=== PATIENT | female | born 1935 | race Caucasian/White ===

== ENCOUNTER 2017-01-13 08:00 | Outpatient (RCR) | payer MEDICARE, OTHER ==
[~2017-01-13 08:00] MED LIST: ALTACE5 MG PO; ASPIRIN 81M81 MG/TA2 PO; CARVEDILOL; CIPRO 250MG TA250 MG PO; FLEXERIL 1010 MG/TAB PO; LAMICTAL150 MG PO; LEVOTHYROXINE PO; LIPITOR 10MG10 MG PO; MOTRIN 800800 MG/TAB PO; PERCOCET 325 MG1 TA2 PO; PERCOCET 5/321 UDTAB PO; TYLENOL 500MG500 MG PO; VITAMIN B-1000 MCG/T PO; [UNRECOGNIZED DRUG - OTHER]; muscle relaxant
== END 2017-01-15 16:44 ==
LOC: WSPT 08:00
DX: R26.89 Other abnormalities of gait and mobility (principal); H81.12 Benign paroxysmal vertigo, left ear; R29.898 Other symptoms and signs involving the musculoskeletal system
CPT/HCPCS: G8982-GP

== ENCOUNTER → 2017-06-17 | Outpatient (CLI) | payer MEDICARE, OTHER | LOC: MC.RAD 11:09 | DX: N60.01 Solitary cyst of right breast (principal); N64.89 Other specified disorders of breast ==

== ENCOUNTER → 2017-06-30 | Outpatient (CLI) | payer MEDICARE, OTHER | LOC: MC.RAD 08:26 | DX: R92.8 Other abnormal and inconclusive findings on diagnostic imaging of breast (principal) ==

== ENCOUNTER 2018-10-01 01:41 | Inpatient (IN) | payer MEDICARE, OTHER ==
[~2018-10-01] VITALS: Ht 165.1 cm; Wt 55.0 kg
[2018-10-01] VITALS (489 sets, daily range): BP systolic 103–126; BP diastolic 48–60; PULSE 50–57; TEMP 97.5–98; O2SAT 77–100
[2018-10-01 02:15] LABS: BASO % 0.3 % (0.0-2.0); EOS # 0.1 (0.0-0.7); GRAN # 5.1 (1.4-6.5); GRAN % 78.5 % (42.2-75.2); HEMOGLOBIN 10.6 g/dl (12.5-16.0); LYMPH # 0.7 (1.2-3.4); LYMPH % 10.9 % (20.0-51.0); MEAN CELL VOLUME 89 fl (80.0-100.0); MEAN CORPUSCULAR HEMOGLOBIN 31 pg (27.0-31.0); MEAN CORPUSCULAR HGB CONC 35 g/dl (33.0-37.0); MEAN PLATELET VOLUME 10.2 fl (7.4-10.4); MONO # 0.5 (0.1-0.6); MONO % 7.8 % (1.7-9.3); PLATELET COUNT 148 K/mm3 (130-400); RED BLOOD COUNT 3.44 M/mm3 (4.10-5.30); REDCELL DISTRIBUTION WIDTH-CV 14.7 % (11.5-14.5)
[2018-10-01 02:22] LABS: HEMATOCRIT 30.5 % (37.0-47.0)
[2018-10-01 02:24] LABS: ALBUMIN 3.8 gm/dL (3.5-5.0); BILIRUBIN,TOTAL 0.5 mg/dL (0.0-1.0); CALCIUM 9.2 mg/dL (8.4-10.2); CREATININE, serum 0.74 (0.52-1.25); TOTAL PROTEIN 6.2 gm/dL (6.4-8.2)
[2018-10-01 02:26] LABS: INR 1.1 (0.8-3.0); PROTHROMBIN TIME 13.3 SECONDS (9.7-12.8)
[2018-10-01 02:29] LABS: POTASSIUM 2.4 mmol/L (3.4-5.0)
[2018-10-01 02:35] LABS: TROPONIN-I 0.016 ng/mL (0.000-0.035)
[2018-10-01 04:06] LABS: COLLECTION METHOD CATHETER
[2018-10-01 04:47] LABS: MUCOUS Present /lpf; PH 6 (5-8); SQUAMOUS EPITHELIAL None Seen /hpf; URINE APPEARANCE Clear; URINE BACTERIA None Seen /hpf; URINE BILIRUBIN Negative (NEGATIVE); URINE BLOOD Negative (NEGATIVE); URINE COLOR Yellow; URINE GLUCOSE Negative (NEGATIVE); URINE KETONE Trace (NEGATIVE); URINE LEUKOCYTE ESTERASE Negative (NEGATIVE); URINE NITRATE Negative (NEGATIVE); URINE PROTEIN(semi-quant) Negative (NEGATIVE); URINE RBC 0-2 /hpf; URINE UROBILINOGEN Negative (NEGATIVE)
[2018-10-01] MEDS ORDERED: ELIQUIS 2.5 PO (06:07)
[2018-10-01] MEDS ORDERED: LIPITOR 10MG10 MG PO (06:08)
[2018-10-01] MEDS ORDERED: COREG12.5 MG PO (06:09)
[2018-10-01] MEDS ORDERED: ZYRTEC 10MG10 MG PO (06:09)
[2018-10-01] MEDS ORDERED: LANOXIN 0.120.125 MG PO (06:09)
[2018-10-01] MEDS ORDERED: CYMBALTA 60MG60 MG PO (06:10)
[2018-10-01] MEDS ORDERED: NEURONTIN300 MG/CAP PO (06:10)
[2018-10-01] MEDS ORDERED: SYNTHROID0.05 MG/TA PO (06:11)
[2018-10-01] MEDS ORDERED: B-121000 MCG PO (06:11)
[2018-10-01 06:25] LABS: DIGOXIN 0.6 ng/mL (0.8-2.0)
[2018-10-01 06:35] LABS: THYROID STIMULATING HORMONE 0.52 uIU/mL (0.465-4.680)
--- NOTE | 2018-10-01 09:08 | NUR ---
Admission assessment complete at this time. Plan of care reviewed at bedside with patient. Additional time taken to address any other needs or concerns. Vitals stable. Denies pain or any other discomfort. Will continue to monitor. Bed in low position and call light within reach.
--- NOTE | 2018-10-01 10:18 | NUR ---
Patient was indisposed at the time of my visit. She was being seen by a doctor.
--- NOTE | 2018-10-01 11:27 | NUR ---
Patient was indisposed with a nurse.
--- NOTE | 2018-10-01 12:00 | NUR ---
Pt resting comfortably in bed. Denies pain or any other discomfort. Vitals stable at this time. Bed in low position, call light within reach. Will continue to monitor.
--- NOTE | 2018-10-01 16:00 | NUR ---
Pt resting comfortably in bed. Denies pain or any other discomfort. Vitals stable at this time. Amiodarone gtt continues as ordered. Bed in low position, call light within reach, at bedside. Will continue to monitor.
[2018-10-01] MEDS ORDERED: PACERONE200 MG PO (16:18)
--- NOTE | 2018-10-01 19:10 | NUR ---
Bedside report given to REBECCA Herrera.
--- NOTE | 2018-10-01 19:40 | NUR ---
Patient assessment completed and charted at this time, please see documentation for details. Patient resting in bed, son and at bedside. All questions and concerns addressed with patient and family, will continue to monitor.
[2018-10-02] VITALS (503 sets, daily range): BP systolic 135–155; BP diastolic 70–94; PULSE 57–64; TEMP 97.5–98.1; O2SAT 74–100
[2018-10-02 04:53] LABS: BASO % 0.2 % (0.0-2.0); EOS # 0.1 (0.0-0.7); EOS % 2.2 % (0-4.0); GRAN # 3.7 (1.4-6.5); GRAN % 69.3 % (42.2-75.2); LYMPH # 0.9 (1.2-3.4); LYMPH % 16.9 % (20.0-51.0); MEAN CELL VOLUME 91 fl (80.0-100.0); MEAN CORPUSCULAR HGB CONC 34 g/dl (33.0-37.0); MEAN PLATELET VOLUME 10.7 fl (7.4-10.4); MONO # 0.6 (0.1-0.6); PLATELET COUNT 113 K/mm3 (130-400); RED BLOOD COUNT 3.19 M/mm3 (4.10-5.30); REDCELL DISTRIBUTION WIDTH-CV 15.3 % (11.5-14.5)
[2018-10-02 04:56] LABS: HEMOGLOBIN 9.8 g/dl (12.5-16.0); MEAN CORPUSCULAR HEMOGLOBIN 31 pg (27.0-31.0)
[2018-10-02 05:11] LABS: CREATININE, serum 0.55 (0.52-1.25); MAGNESIUM 2.1 mg/dL (1.6-2.3); POTASSIUM 3.7 mmol/L (3.4-5.0)
--- NOTE | 2018-10-02 08:00 | NUR ---
Shift assessment complete at this time. Plan of care reviewed at bedside with patient. Additional time taken to address any other needs or concerns. Vitals stable at this time. Denies pain or any other discomfort. Bed in low position, call light within reach. Will continue to monitor.
[2018-10-02] MEDS ORDERED: CORDARONE200 MG/TAB PO (10:08)
[2018-10-02] MEDS ORDERED: IMODIUM 2MG CAPS2 MG PO (10:09)
[2018-10-02] MEDS ORDERED: LASIX 20MG TABL20 MG PO (10:09)
[2018-10-02] MEDS ORDERED: KLOR-CON M2020 MEQ PO (10:10)
--- NOTE | 2018-10-02 11:20 | NUR ---
Pt discharged by wheelchair to private car of family. Pt tolerated wheelchair transfer well.
== END 2018-10-02 11:20 | disposition home or self-care (01) | DRG 309 ==
LOC: COL.ER 01:41 → ICU 04:20
PROVIDERS: Emergency Medicine; Nurse Practitioner Family; ADMIT Hospitalist
PROC: 4B02XTZ Measurement of Cardiac Defibrillator, External Approach (ICD-10-PCS; principal; 2018-10-01)
DX: I47.2 Ventricular tachycardia (principal); I50.20 Unspecified systolic (congestive) heart failure; T50.1X5A Adverse effect of loop [high-ceiling] diuretics, initial encounter; E87.6 Hypokalemia; K52.9 Noninfective gastroenteritis and colitis, unspecified; E78.5 Hyperlipidemia, unspecified; Z95.0 Presence of cardiac pacemaker; Z79.01 Long term (current) use of anticoagulants; E03.9 Hypothyroidism, unspecified; Z79.52 Long term (current) use of systemic steroids; Z87.891 Personal history of nicotine dependence; Z88.8 Allergy status to other drugs, medicaments and biological substances; Y92.009 Unspecified place in unspecified non-institutional (private) residence as the place of occurrence of the external cause; E83.42 Hypomagnesemia; I11.0 Hypertensive heart disease with heart failure; G62.9 Polyneuropathy, unspecified; D64.9 Anemia, unspecified; I25.10 Atherosclerotic heart disease of native coronary artery without angina pectoris
CPT/HCPCS: 99222-AI; 99232-AI; 99239; J0282; J2405; J3475; J3480; J7030; J7060

== ENCOUNTER 2018-10-21 20:29 | Emergency (ER) | payer MEDICARE, OTHER ==
[~2018-10-21] VITALS: Ht 165.1 cm; Wt 47.7 kg
[~2018-10-21 20:29] MED LIST changes: +B-121000 MCG PO; +CORDARONE200 MG/TAB PO; +COREG12.5 MG PO; +CYMBALTA 60MG60 MG PO; +ELIQUIS 2.5 PO; +IMODIUM 2MG CAPS2 MG PO; +KLOR-CON M2020 MEQ PO; +LANOXIN 0.120.125 MG PO; +LASIX 20MG TABL20 MG PO; +NEURONTIN300 MG/CAP PO; +PACERONE200 MG PO; +SYNTHROID0.05 MG/TA PO; +ZYRTEC 10MG10 MG PO
[2018-10-21 20:33] VITALS: TEMP 98.3
[2018-10-21 21:10] LABS: ALBUMIN 3.9 gm/dL (3.5-5.0); BILIRUBIN,TOTAL 0.5 mg/dL (0.0-1.0); CALCIUM 9.2 mg/dL (8.4-10.2); CREATININE, serum 1.16 (0.52-1.25); POTASSIUM 3.6 mmol/L (3.4-5.0); TOTAL PROTEIN 6.9 gm/dL (6.4-8.2)
[2018-10-21 21:13] LABS: BASO % 0.4 % (0.0-2.0); EOS # 0.3 (0.0-0.7); EOS % 4.3 % (0-4.0); GRAN # 5.4 (1.4-6.5); GRAN % 75.1 % (42.2-75.2); HEMATOCRIT 32.1 % (37.0-47.0); HEMOGLOBIN 10.7 g/dl (12.5-16.0); LYMPH # 0.8 (1.2-3.4); LYMPH % 10.8 % (20.0-51.0); MEAN CELL VOLUME 92 fl (80.0-100.0); MEAN CORPUSCULAR HEMOGLOBIN 31 pg (27.0-31.0); MEAN CORPUSCULAR HGB CONC 33 g/dl (33.0-37.0); MONO # 0.6 (0.1-0.6); PLATELET COUNT 247 K/mm3 (130-400); RED BLOOD COUNT 3.49 M/mm3 (4.10-5.30); REDCELL DISTRIBUTION WIDTH-CV 14.6 % (11.5-14.5)
[2018-10-21 21:22] LABS: TROPONIN-I 0.014 ng/mL (0.000-0.035)
[2018-10-21 22:07] LABS: THYROID STIMULATING HORMONE 2.28 uIU/mL (0.465-4.680)
[2018-10-21 23:39] LABS: COLLECTION METHOD CLEAN CATCH
[2018-10-21 23:45] LABS: PH 6 (5-8); SQUAMOUS EPITHELIAL None Seen /hpf; URINE APPEARANCE Clear; URINE BACTERIA None Seen /hpf; URINE BILIRUBIN Negative (NEGATIVE); URINE BLOOD Negative (NEGATIVE); URINE COLOR Straw; URINE GLUCOSE Negative (NEGATIVE); URINE KETONE Negative (NEGATIVE); URINE LEUKOCYTE ESTERASE Negative (NEGATIVE); URINE NITRATE Negative (NEGATIVE); URINE PROTEIN(semi-quant) Negative (NEGATIVE); URINE RBC 0-2 /hpf; URINE UROBILINOGEN Negative (NEGATIVE)
[2018-10-21 23:59] VITALS: BP 136/61; PULSE 62
== END 2018-10-21 23:59 | disposition home or self-care (01) ==
LOC: COL.ER 20:29
PROVIDERS: Emergency Medicine
DX: R55 Syncope and collapse (principal); I47.2 Ventricular tachycardia
CPT/HCPCS: J3475

== ENCOUNTER 2018-10-29 18:34 | Emergency (ER) | payer MEDICARE, OTHER ==
[~2018-10-29] VITALS: Ht 165.1 cm; Wt 47.7 kg
[2018-10-29 18:41] VITALS: TEMP 97.4
[2018-10-29 19:13] LABS: BASO % 0.4 % (0.0-2.0); EOS # 0.4 (0.0-0.7); GRAN # 5.4 (1.4-6.5); GRAN % 75.6 % (42.2-75.2); HEMOGLOBIN 10.9 g/dl (12.5-16.0); LYMPH # 0.7 (1.2-3.4); LYMPH % 9.4 % (20.0-51.0); MEAN CELL VOLUME 92 fl (80.0-100.0); MEAN CORPUSCULAR HEMOGLOBIN 30 pg (27.0-31.0); MEAN CORPUSCULAR HGB CONC 33 g/dl (33.0-37.0); MONO # 0.6 (0.1-0.6); MONO % 8.6 % (1.7-9.3); PLATELET COUNT 246 K/mm3 (130-400); RED BLOOD COUNT 3.58 M/mm3 (4.10-5.30); REDCELL DISTRIBUTION WIDTH-CV 14.4 % (11.5-14.5)
[2018-10-29 19:20] LABS: INR 1.2 (0.8-3.0); PROTHROMBIN TIME 14.2 SECONDS (9.7-12.8)
[2018-10-29 19:23] LABS: ALANINE AMINOTRANSFERASE 48 U/L (9-52); ALKALINE PHOSPHATASE 74 U/L (50-136); ANION GAP 9 mmol/L (7-16); AST,SGOT 53 U/L (15-37); BILIRUBIN,TOTAL 0.4 mg/dL (0.0-1.0); BLOOD UREA NITROGEN 14 mg/dL (7-17); CALCIUM 9.4 mg/dL (8.4-10.2); CARBON DIOXIDE 28 mmol/L (22-30); CHLORIDE 96 mmol/L (98-107); CREATININE, serum 0.84 (0.52-1.25); GLUCOSE 107 mg/dL (74-106); POTASSIUM 4.5 mmol/L (3.4-5.0); SODIUM 133 mmol/L (137-145); TOTAL PROTEIN 6.9 gm/dL (6.4-8.2)
[2018-10-29 19:34] LABS: TROPONIN-I < 0.012 ng/mL (0.000-0.035)
[2018-10-29 19:45] LABS: DIGOXIN 1.4 ng/mL (0.8-2.0)
[2018-10-29 20:34] LABS: COLLECTION METHOD CLEAN CATCH
[2018-10-29 20:41] LABS: PH 7 (5-8); SQUAMOUS EPITHELIAL 0-2 /hpf; URINE APPEARANCE Clear; URINE BACTERIA None Seen /hpf; URINE BILIRUBIN Negative (NEGATIVE); URINE BLOOD Negative (NEGATIVE); URINE COLOR Yellow; URINE GLUCOSE Negative (NEGATIVE); URINE KETONE Negative (NEGATIVE); URINE LEUKOCYTE ESTERASE Negative (NEGATIVE); URINE NITRATE Negative (NEGATIVE); URINE PROTEIN(semi-quant) Negative (NEGATIVE); URINE RBC 0-2 /hpf; URINE UROBILINOGEN Negative (NEGATIVE); URINE WBC 0-2 /hpf
[2018-10-29 21:16] VITALS: BP 155/77; PULSE 59
== END 2018-10-29 21:20 | disposition home or self-care (01) ==
LOC: COL.ER 18:34
PROVIDERS: Nurse Practitioner Primary Care
DX: R42 Dizziness and giddiness (principal); I50.9 Heart failure, unspecified; I11.0 Hypertensive heart disease with heart failure; E78.5 Hyperlipidemia, unspecified; Z95.0 Presence of cardiac pacemaker; Z79.01 Long term (current) use of anticoagulants

== ENCOUNTER 2018-11-08 17:17 | Emergency (ER) | payer MEDICARE, OTHER ==
[~2018-11-08] VITALS: Ht 165.1 cm; Wt 47.3 kg
[2018-11-08 17:46] VITALS: BP 136/63; PULSE 61; TEMP 97.1
== END 2018-11-08 18:23 | disposition left against medical advice (07) ==
LOC: COL.ER 17:17
DX: R53.83 Other fatigue (principal); Z95.810 Presence of automatic (implantable) cardiac defibrillator

== ENCOUNTER → 2018-11-14 | Outpatient (CLI) | payer MEDICARE, OTHER | LOC: COL.RAD 12:56 | DX: R51 Headache (principal) ==

== ENCOUNTER 2019-02-21 10:30 | Outpatient (RCR) | payer MEDICARE, OTHER ==
[~2019-02-21 10:30] MED LIST changes: +ALDACTONE 25MG25 M1 PO; +ARICEPT10 MG PO; +ASTEPRO205.5 MCG/ NS; +CLARITIN 1010 MG/TAB PO; +COREG 3.123.125 MG/T PO; +K-DUR20 MEQ PO; +PRINIVIL2.5 MG PO; +REMERON 15M15 MG/TA1 PO; +SYNTHROID0.075 MG/T PO
[2019-02-24] MEDS ORDERED: PACERONE200 MG PO (16:26)
[2019-02-24] MEDS ORDERED: COLACE 100100 MG/CAP PO (16:27)
[2019-02-24] MEDS ORDERED: LASIX 20MG TABL20 MG PO (16:28)
[2019-02-24] MEDS ORDERED: D3-5050000 IU PO (23:06)
[2019-02-24] MEDS ORDERED: BALANCE B-1001 TA1 PO (23:07)
[2019-02-27] MEDS ORDERED: LASIX 40MG TABL40 MG PO (16:07)
== END 2019-05-08 | disposition still patient (30) ==
LOC: WSST
DX: R41.3 Other amnesia (principal)

== ENCOUNTER 2020-04-24 17:18 | Observation (INO) | payer MEDICARE, OTHER ==
[~2020-04-24] VITALS: Ht 165.1 cm; Wt 55.7 kg
[~2020-04-24 17:18] MED LIST changes: +BALANCE B-1001 TA1 PO; +COLACE 100100 MG/CAP PO; +D3-5050000 IU PO; +LASIX 40MG TABL40 MG PO; -SYNTHROID0.075 MG/T PO; +SYNTHROID0.1 MG/TAB PO
[2020-04-24 19:02] LABS: BASO % 0.4 % (0.0-2.0); EOS # 0.2 (0.0-0.7); EOS % 2.5 % (0-4.0); GRAN # 6.5 (1.4-6.5); GRAN % 80.6 % (42.2-75.2); HEMOGLOBIN 11.2 g/dl (12.5-16.0); LYMPH # 0.7 (1.2-3.4); LYMPH % 8.2 % (20.0-51.0); MEAN CELL VOLUME 95 fl (80.0-100.0); MEAN CORPUSCULAR HEMOGLOBIN 31 pg (27.0-31.0); MEAN CORPUSCULAR HGB CONC 33 g/dl (33.0-37.0); MEAN PLATELET VOLUME 9.7 fl (7.4-10.4); MONO # 0.6 (0.1-0.6); MONO % 7.9 % (1.7-9.3); PLATELET COUNT 193 K/mm3 (130-400); RED BLOOD COUNT 3.59 M/mm3 (4.10-5.30); REDCELL DISTRIBUTION WIDTH-CV 14.4 % (11.5-14.5)
[2020-04-24 19:06] LABS: HEMATOCRIT 34.2 % (37.0-47.0)
[2020-04-24 19:09] LABS: ALBUMIN 4.5 gm/dL (3.5-5.0); BILIRUBIN,TOTAL 0.8 mg/dL (0.0-1.0); CALCIUM 9.1 mg/dL (8.4-10.2); CREATININE, serum 1.53 (0.52-1.25); TOTAL PROTEIN 7.3 gm/dL (6.4-8.2)
[2020-04-24 19:25] LABS: TROPONIN-I 0.096 ng/mL (0.000-0.035)
[2020-04-24 22:21] VITALS: BP 136/65; PULSE 66; TEMP 97.9
[2020-04-24 22:35] VITALS: BP 136/65; PULSE 66; TEMP 97.9
--- NOTE | 2020-04-24 23:13 | NUR ---
Pt arrived to the floor via stretcher. Pt was moved from one bed to the other. Pt had concerns about sleeping. Pam the hosptialist was contacted about this and melatonin was ordered at this time. Pt has two stitches on conrner of her left eye. Pt face does have some bruising. Pt seems confused she does know where she is the date and what city she is in and what city she lives in. She frequently ask the same questions. Pt has her call light within reach and her bed is in lowest position and her alarm is on.
[2020-04-25] VITALS (7 sets, daily range): BP systolic 97–122; BP diastolic 41–59; PULSE 56–60; TEMP 97.5–98.7
--- NOTE | 2020-04-25 00:06 | NUR ---
Received call from lab for a critical for troponin pt currently is at 0.109. Attempted to call [facility], the hospitalist will try calling her back shortly. Pt is currently resting in bed.
--- NOTE | 2020-04-25 00:12 | NUR ---
Notified [facility] that pt Troponin was at 0.109.
--- NOTE | 2020-04-25 02:12 | NUR ---
Received a call that pt troponin level was at 0.130, Parris the hospitalist was notified at this time. She just wants pt morning EKG done and wants pt monitored for any abnomal changes. Pt is currently resting in bed. When doing hourly rounding pt was reminded that she was in the hospital and how to use her call light if she needs us. Her call light is within reach and her bed alarm is on. Pt refused ice to her face stated that she was very cold. [facility] Facial swelling was noted at this time.
--- NOTE | 2020-04-25 02:15 | NUR ---
Pt currently resting in bed. Did contact jyoti Nye to verify she didn't want a EKG due to pt having a pacer. She does still want ECHO and wants to continue monitor pt troponin and wants me to contact Dr. Yung to let him know that there is a cardiology consult in. Pt is currently resting in bed.
--- NOTE | 2020-04-25 03:29 | NUR ---
Pt was assisted to the restroom. Pt was able to ambulate to the restroom with a gaitbelt and one assist. Pt ambulated well but did have to hold on to me. Pt is back in bed and has her call light within reach and her bed alarm is on.
--- NOTE | 2020-04-25 05:54 | NUR ---
Pt currently resting in bed and stated that she has no pain at this time. Pt has her call light within reach and her bed is in lowest position and alarm is on.
--- NOTE | 2020-04-25 06:36 | NUR ---
Dr. Yung was paged at this time. This was just to make sure that I'm able to update him on the cardiology consult that was put in for the pt by Parris, the hospitalist. Will try again and if unable to reach will inform the day shift nurse so that the doctor is notified about he consult. Pt did state that she has no pain at this time. She is resting in bed she did not want ice anymore and wanted a break from her SCD's.
--- NOTE | 2020-04-25 07:00 | NUR ---
I attempted to page Dr. Yung again this morning. I did notify day nurse about the pt cardiology consult and to try to contact him to update up on the consult and pt status. Reported off to REBECCA Chua.
[2020-04-25 07:03] LABS: CALCIUM 9.1 mg/dL (8.4-10.2); CREATININE, serum 1.42 (0.52-1.25)
[2020-04-25 07:10] LABS: TROPONIN-I 0.113 ng/mL (0.000-0.035)
--- NOTE | 2020-04-25 08:55 | NUR ---
Pt awake and alert upon entry sitting up in bed. Shift assessments complete, left Pt call light in reach, bed in lowest position, alarm on.
[2020-04-25 14:23] LABS: HEMOGLOBIN 10.6 g/dl (12.5-16.0)
[2020-04-25 14:24] LABS: HEMATOCRIT 32.9 % (37.0-47.0)
[2020-04-25] MEDS ORDERED: SYNTHROID0.088 MG/T PO (14:25)
--- NOTE | 2020-04-25 15:05 | NUR ---
The patient has dementia. Sustainable Products Marketing Manager contacted the patient's daughter, Radhika to complete initial intake. The patient lives in [place] with her , Senthil. The patient uses at walker at time and uses 2L of oxygen at night. The patient is independent with ADLs. The patient's PCP is Dr. Rodrigo Peña and has medications delivered from [facility]. The patient does not have advanced directives in the EMR but Akhil states they are complete and designate her. She reports that Elias with Dr. Peña's office can fax a copy to this DORINA. DORINA attempted to contact Elias, she was not in the office will attempt on Thursday 04/26. DORINA staffed with the patient's nurse and discussed PT/OT notes. PT/OT is recommending post acute rehab. The patient's daughter would like the patient to [facility]. DORINA contacted the patient's daughter and discussed sending referrals. She was open to sending referrals to facilites that are accepting patients. Referrals sent to [facility], [facility], [facility], [facility], [facility], and [facility]. DORINA collaborated the above information with the patient's nurse.
--- NOTE | 2020-04-25 20:33 | NUR ---
Resting in bed. Assessment complete. Lungs clear. Heart sounds normal. Bowels active x4. Pulses present throughout. Bilateral lower extremity edema +1. INT left forearm flushed without complications. Denies pain at this time. Patient left face bruising present with laceration to left orbital area with sutures in place. Denies needs at this time. Call light in reach.
--- NOTE | 2020-04-26 01:58 | NUR ---
Resting in bed asleep. Call light in reach.
[2020-04-26 03:21] VITALS: BP 126/53; PULSE 59; TEMP 97.8
--- NOTE | 2020-04-26 05:57 | NUR ---
Patient had uneventful night. Refused to urinate during night. States "I will do that when I get up." Resting in bed this AM. Call light in reach.
[2020-04-26 06:10] LABS: HEMOGLOBIN 10.1 g/dl (12.5-16.0); MEAN CELL VOLUME 96 fl (80.0-100.0); MEAN CORPUSCULAR HEMOGLOBIN 31 pg (27.0-31.0); MEAN CORPUSCULAR HGB CONC 32 g/dl (33.0-37.0); MEAN PLATELET VOLUME 10.1 fl (7.4-10.4); PLATELET COUNT 164 K/mm3 (130-400); REDCELL DISTRIBUTION WIDTH-CV 14.3 % (11.5-14.5)
[2020-04-26 06:12] LABS: HEMATOCRIT 31.5 % (37.0-47.0)
[2020-04-26 06:23] LABS: CALCIUM 9.1 mg/dL (8.4-10.2); CREATININE, serum 1.43 (0.52-1.25); POTASSIUM 3.4 mmol/L (3.4-5.0)
--- NOTE | 2020-04-26 07:06 | NUR ---
Report given to REBECCA Marroquin
[2020-04-26 08:13] VITALS: BP 130/51; PULSE 60; TEMP 96.6
--- NOTE | 2020-04-26 09:00 | NUR ---
Pt assessment complete. Pt is laying in bed upon entry, she is alert and oriented to person and time only. Does repeat herself several times throughout the assessment. Pt denies any pain. No N/V. Pt asking if she can go home. Assisted to the restroom with assistance of one and walker, pt did almost loose balance while walking. Up in the chair at this time eating breakfast. Fall precautions in place. Will continue to monitor.
--- NOTE | 2020-04-26 09:00 | NUR ---
Data Governance Consultant staffed with Hospitalist regarding the patient discharge disposition. Hospitalist discussed discharge plan with the patient's daughter and she would like to take the patient home with home health services. The team was in agreeance. SW contacted the patient's daughter, Radhika. She confirmed that she does not want the patient to go to post acute rehab at this time. SW discussed [employer]'s list of HH agencies. The patient has had [facility] in the past and would like to use them again. Referral faxed. DORINA contacted Iris regarding referral, left message.
[2020-04-26] MEDS ORDERED: AMOXICILLIN 50500 MG PO (09:19)
[2020-04-26 09:20] LABS: COLLECTION METHOD CATHETER
[2020-04-26] MEDS ORDERED: LASIX 20MG TABL20 MG PO (09:20)
[2020-04-26 09:32] LABS: MUCOUS Present /lpf; PH 5 (5-8); SQUAMOUS EPITHELIAL 0-2 /hpf; URINE APPEARANCE Hazy; URINE BACTERIA None Seen /hpf; URINE BILIRUBIN Negative (NEGATIVE); URINE BLOOD Negative (NEGATIVE); URINE COLOR Yellow; URINE GLUCOSE Negative (NEGATIVE); URINE KETONE Negative (NEGATIVE); URINE LEUKOCYTE ESTERASE Negative (NEGATIVE); URINE NITRATE Negative (NEGATIVE); URINE PROTEIN(semi-quant) Negative (NEGATIVE); URINE RBC 0-2 /hpf; URINE UROBILINOGEN Negative (NEGATIVE)
--- NOTE | 2020-04-26 10:14 | NUR ---
The patient is to discharge home today, 04/26 with Jose MARTINEZ. Iris with [facility] reports they can accept the patient for PT/OT/Nursing services. SW faxed discharge orders. There are no additional needs at this time.
[2020-04-26 11:08] LABS: BASO % 0.5 % (0.0-2.0); EOS # 0.2 (0.0-0.7); EOS % 2.9 % (0-4.0); GRAN # 3.8 (1.4-6.5); GRAN % 69.1 % (42.2-75.2); LYMPH # 0.8 (1.2-3.4); LYMPH % 13.7 % (20.0-51.0); MONO # 0.7 (0.1-0.6); MONO % 13.4 % (1.7-9.3)
[2020-04-26 11:15] LABS: ALBUMIN 3.6 gm/dL (3.5-5.0); BILIRUBIN,TOTAL 0.9 mg/dL (0.0-1.0); TOTAL PROTEIN 6.2 gm/dL (6.4-8.2)
[2020-04-26 11:47] VITALS: BP 124/56; PULSE 59; TEMP 97.4
--- NOTE | 2020-04-26 12:40 | NUR ---
Discharge instructions reviewed with patient and her , instructed to picker tender helper prescriptions at pharmacy. Pt's replied "we have antibiotics at home". Encouraged them to picker tender helper scripts as she needs to take and finish certain antibiotics as well as adjust Lasix dose. IV to LFA dc'd catheter intact. Pt wheeled out at this time.
== END 2020-04-26 12:40 | disposition home health service (06) ==
LOC: COL.ER 17:18 → MEDICAL 19:39
PROVIDERS: Hospitalist; Nurse Practitioner Primary Care; Physician Assistant; Student in an Organized Health Care Education/Training Program; ADMIT Internal Medicine
DX: S02.40DA Maxillary fracture, left side, initial encounter for closed fracture (principal); S02.32XA Fracture of orbital floor, left side, initial encounter for closed fracture; R04.89 Hemorrhage from other sites in respiratory passages; I50.22 Chronic systolic (congestive) heart failure; I48.91 Unspecified atrial fibrillation; N17.9 Acute kidney failure, unspecified; E78.5 Hyperlipidemia, unspecified; R74.01 Elevation of levels of liver transaminase levels; D53.9 Nutritional anemia, unspecified; G62.9 Polyneuropathy, unspecified; E03.9 Hypothyroidism, unspecified; F32.9 Major depressive disorder, single episode, unspecified; F03.90 Unspecified dementia, unspecified severity, without behavioral disturbance, psychotic disturbance, mood disturbance, and anxiety; Z90.710 Acquired absence of both cervix and uterus; Z79.01 Long term (current) use of anticoagulants; Z88.7 Allergy status to serum and vaccine; I08.3 Combined rheumatic disorders of mitral, aortic and tricuspid valves
CPT/HCPCS: 99223-AI; J7030

== ENCOUNTER 2020-10-28 10:58 | Inpatient (IN) | payer MEDICARE, OTHER ==
[2020-10-28] VITALS (153 sets, daily range): BP systolic 112–127; BP diastolic 76–78; PULSE 59–93; TEMP 97–98.1; O2SAT 62–100
[~2020-10-28] VITALS: Ht 167.6 cm; Wt 58.4 kg
[~2020-10-28 10:58] MED LIST changes: +AMOXICILLIN 50500 MG PO; +SYNTHROID0.088 MG/T PO
[2020-10-28 11:15] LABS: BASO % 0.2 % (0.0-2.0); EOS % 0.3 % (0-4.0); GRAN # 9.4 (1.4-6.5); GRAN % 84.5 % (42.2-75.2); HEMATOCRIT 33.9 % (37.0-47.0); HEMOGLOBIN 11.2 g/dl (12.5-16.0); LYMPH # 0.7 (1.2-3.4); MEAN CELL VOLUME 99 fl (80.0-100.0); MEAN CORPUSCULAR HEMOGLOBIN 33 pg (27.0-31.0); MEAN CORPUSCULAR HGB CONC 33 g/dl (33.0-37.0); MONO # 0.9 (0.1-0.6); MONO % 8.1 % (1.7-9.3); PLATELET COUNT 144 K/mm3 (130-400); RED BLOOD COUNT 3.43 M/mm3 (4.10-5.30); REDCELL DISTRIBUTION WIDTH-CV 17.8 % (11.5-14.5)
[2020-10-28 11:17] LABS: ARTERIAL BLD GAS O2 SATURATION 84.6 % (92-100); ARTERIAL BLD GAS TCO2 CT 17.9; ARTERIAL BLOOD GAS HCO3 17.1 meq/L (22-26); ARTERIAL BLOOD GAS PCO2 27.1 mmHg (35-45); ARTERIAL BLOOD GAS PO2 52.9 mmHg (80-100); ARTERIAL BLOOD GAS pH 7.42 (7.35-7.45)
[2020-10-28 11:22] LABS: INR 1.3 (0.8-3.0); PROTHROMBIN TIME 14.6 SECONDS (9.7-12.8)
[2020-10-28 12:01] LABS: ALBUMIN 4.4 gm/dL (3.5-5.0); BILIRUBIN,TOTAL 1.7 mg/dL (0.0-1.0); CALCIUM 9.1 mg/dL (8.4-10.2); CREATININE, serum 2.59 (0.52-1.25); POTASSIUM 4.9 mmol/L (3.4-5.0); TOTAL PROTEIN 7.2 gm/dL (6.4-8.2)
[2020-10-28 12:50] LABS: COLLECTION METHOD CATHETER
[2020-10-28 12:57] LABS: MUCOUS Present /lpf; PH 5 (5-8); SQUAMOUS EPITHELIAL 0-2 /hpf; URINE APPEARANCE Cloudy; URINE BACTERIA Many /hpf; URINE BILIRUBIN Negative (NEGATIVE); URINE BLOOD Negative (NEGATIVE); URINE COLOR Amber; URINE GLUCOSE Negative (NEGATIVE); URINE KETONE Negative (NEGATIVE); URINE LEUKOCYTE ESTERASE Trace (NEGATIVE); URINE NITRATE Negative (NEGATIVE); URINE PROTEIN(semi-quant) Negative (NEGATIVE); URINE RBC 0-2 /hpf
[2020-10-28 13:04] LABS: TROPONIN-I 0.126 ng/mL (0.000-0.035)
[2020-10-28] MEDS ORDERED: VITAMIND3 5000 PO (16:20)
[2020-10-28] MEDS ORDERED: ALDACTONE 25MG25 M1 PO (16:20)
--- NOTE | 2020-10-28 17:00 | NUR ---
PATIENT ARRIVES TO ICU. PATIENT ON AIRVO. SHE IS HYPOXIC. BUILDING MAINTENANCE REPAIRER ANISHA CHANGING FIO2 SETTINGS. WILL CONTINUE TO MONITOR.
[2020-10-28 17:20] LABS: HEMOGLOBIN 11.6 g/dl (12.5-16.0); MEAN CELL VOLUME 99 fl (80.0-100.0); MEAN CORPUSCULAR HEMOGLOBIN 33 pg (27.0-31.0); MEAN CORPUSCULAR HGB CONC 33 g/dl (33.0-37.0); MEAN PLATELET VOLUME 11.2 fl (7.4-10.4); PLATELET COUNT 162 K/mm3 (130-400); RED BLOOD COUNT 3.57 M/mm3 (4.10-5.30); REDCELL DISTRIBUTION WIDTH-CV 17.8 % (11.5-14.5)
[2020-10-28 17:35] LABS: HEMATOCRIT 35.2 % (37.0-47.0)
[2020-10-28 17:41] LABS: ARTERIAL BLD GAS O2 SATURATION 96.3 % (92-100); ARTERIAL BLD GAS TCO2 CT 13.4; ARTERIAL BLOOD GAS BASE EXCESS -10.7 (-2-2); ARTERIAL BLOOD GAS HCO3 12.7 meq/L (22-26); ARTERIAL BLOOD GAS PO2 96.6 mmHg (80-100); ARTERIAL BLOOD GAS pH 7.37 (7.35-7.45)
[2020-10-28 17:42] LABS: ARTERIAL BLOOD GAS PCO2 22.7 mmHg (35-45)
--- NOTE | 2020-10-28 17:44 | NUR ---
DR. CURRAN CALLED REGARDING INCREASED NEED FOR OXYGEN AND IS NOW MAX ON BIPAP. ORDERS RECEIVED. WILL GET ABG AND TAKE PATIENT TO CT.
[2020-10-28 18:10] LABS: PARTIAL THROMBOPLASTIN TIME 23.8 SECONDS (26.0-37.0)
--- NOTE | 2020-10-28 18:15 | NUR ---
DR. THIBODEAUX HERE TO PLACE CENTRAL LINE. CONSENT OBTAINED FROM DAUGHTER.
--- NOTE | 2020-10-28 18:45 | NUR ---
PATIENT DOING BETTER WITH INCREASED PRESSURE SETTINGS ON BIPAP. WILL CONTINUE TO MONITOR.
--- NOTE | 2020-10-28 19:54 | NUR ---
REPORT GIVEN TO REBECCA SHEA
[2020-10-28 21:42] LABS: TROPONIN-I 0.142 ng/mL (0.000-0.035)
[2020-10-29] VITALS (595 sets, daily range): BP systolic 96–113; BP diastolic 45–96; PULSE 62–67; TEMP 97.7–101.2; O2SAT 46–100
[2020-10-29 01:27] LABS: ARTERIAL BLD GAS O2 SATURATION 83.5 % (92-100); ARTERIAL BLD GAS TCO2 CT 13.9; ARTERIAL BLOOD GAS BASE EXCESS -13.9 (-2-2); ARTERIAL BLOOD GAS HCO3 12.9 meq/L (22-26); ARTERIAL BLOOD GAS PCO2 33.5 mmHg (35-45); ARTERIAL BLOOD GAS PO2 62.1 mmHg (80-100)
--- NOTE | 2020-10-29 03:50 | NUR ---
0047, PROCESS TO BEGIN PT INTUBATION PT ON BIPAP AT 100% FI02 0049, PT INTUBATED WITH A 7.0 TUBE 23 @ TEETH. COLOR CHANGE ON CO2 DETECTOR, BILATERAL BREATH SOUNDS AND EQUAL CHEST RISE. 005, PT PLACED ON VENT WITH INITIAL VENT SETTINGS OF 400 VT, RR 16, +12, 100% PT SATURATION CONTINUED TO DROP THE PEEP WAS INCRESED FROM 12 TO [address] BRAVO, VESNA PEE WAS INCREASED ALL THE WAY TO 20 AT 0119 0122, DUE TO PT SATURATIONS REMAINING IN THE LOW 80'S PT WAS BEING BAGGED TO HELP SATURATIONS GO UP. PT WAS PLACED BACK ON VENTILATOR AT 0132. DR. CURRAN AT BEDSIDE RR TURNED UP FROM 16 TO 20. PT WAS PLACED ON VENT SETTINGS OF 400VT, 20 RR, +12, 100% PT SATURATION WAS 87% ON SETTINGS, DR CURRAN AND VALERIE BURGOS AWARE OF PT SATURATIONS AND VENT SETTINGS.
[2020-10-29 04:40] LABS: ARTERIAL BLD GAS TCO2 CT 10.9; ARTERIAL BLOOD GAS BASE EXCESS -17.1 (-2-2); ARTERIAL BLOOD GAS PCO2 28.1 mmHg (35-45); ARTERIAL BLOOD GAS PO2 65.1 mmHg (80-100); ARTERIAL BLOOD GAS pH 7.17 (7.35-7.45)
[2020-10-29 05:10] LABS: HEMOGLOBIN 11.4 g/dl (12.5-16.0); MEAN CELL VOLUME 103 fl (80.0-100.0); MEAN CORPUSCULAR HEMOGLOBIN 33 pg (27.0-31.0); MEAN CORPUSCULAR HGB CONC 32 g/dl (33.0-37.0); MEAN PLATELET VOLUME 12.3 fl (7.4-10.4); PLATELET COUNT 145 K/mm3 (130-400); RED BLOOD COUNT 3.44 M/mm3 (4.10-5.30)
[2020-10-29 05:14] LABS: ALBUMIN 3.9 gm/dL (3.5-5.0); BILIRUBIN,TOTAL 5.5 mg/dL (0.0-1.0); CALCIUM 8.3 mg/dL (8.4-10.2); CREATININE, serum 3.72 (0.52-1.25); MAGNESIUM 3.6 mg/dL (1.6-2.3); TOTAL PROTEIN 6.6 gm/dL (6.4-8.2)
[2020-10-29 05:16] LABS: POTASSIUM 6.3 mmol/L (3.4-5.0)
[2020-10-29 05:18] LABS: HEMATOCRIT 35.5 % (37.0-47.0)
--- NOTE | 2020-10-29 05:20 | NUR ---
PT DID NOT MEET ALL CRITERIA FOR WEANING TRIAL. THEREFORE NO WEANING TRIAL WAS DONE. PT IS ON DOCUMENTED SETTINGS.
[2020-10-29 05:47] LABS: BILIRUBIN UNCONJUGATED 1.3 mg/dL (0.0-1.1); BILIRUBIN,DIRECT 4.2 mg/dL (0.0-0.4)
[2020-10-29 05:55] LABS: BAND 12 % (0-10); LYMPHOCYTE 2 % (20.0-51.0); NEUTROPHILS 76 % (42.0-75.2); NUCLEATED RED BLOOD CELL 5 (0-6); PLATELET ESTIMATE NORMAL (NORMAL)
[2020-10-29 05:56] LABS: ANISOCYTOSIS 2+; HYPOCHROMIA 1+
[2020-10-29 05:57] LABS: POLYCHROMASIA 1+
[2020-10-29 06:00] LABS: TROPONIN-I 0.221 ng/mL (0.000-0.035)
--- NOTE | 2020-10-29 08:09 | NUR ---
END OF SHIFT/INTUBATION NOTE: RN CALLED MITZI PADILLA DT PT DESAT INTO 80%, TACHYPNEA AND LETHARGY APROX 0015. MITZI AT BEDSIDE 0030. ANESTHESIA AT BEDSIDE 0045. PT ON BIPAP AT 100% WITH RR 25, BP 81/61 PRIOR TO INTUBATION. INTUBATION STARTED AT 0047. 100MGG PROPOFOL AND 50 SUCCS GIVEN BY ANESTHESIA AT 0048 AND 0049. TUBE PLACED AT 0049. MARKED AND HOLISTERED AT 23 AT TEETHH. CO2 AND BREATH SOUNDS CHECKED FOR PLACEMENT ALONG WITH CXR. AT 0051 BP 91/56 84% O2 AND 10RR. VENT SETTINGS INITIALLY 400 VT, 16RR, 12 PEEP, 100 FI02. 0107 18 f OG PLACED 70 AT LIP. PEEP CHANGED TO 20 AT 0119. STARTED BAGGING 34989 DESAT INTO 60S. EKG AT 0120. REATTACHED ETT TO VENT. PEEP CHANGED TO 12. PO2 91%, RR14, 124/71 AT 0132. RR CHANGED TO 20 AT 0144. FENT OFF AT 0152. PROPOFOL ON @ 0150. DIFFICULT TO GET PT SATS UP, ALL INTERVENTIONS ABOVE ATTEMPTED TO AID PT 02 SATS AND PERFUSION. PROVIDER MITZI AT BEDSIDE. CALLED IN DR CURRAN TO EVALUATE PT. NOT LISTED ABOVE WAS INITIATION OF LEVO AND DOBUTAMINE- SEE EMAR. PT SATS DROPPED AGAIN IN AM. AM LABS WERE ALSO OUT OF NORMAL LIMITS. CALLED PROVIDER. STARTED HYPERKALEMIA PROTOCOL AND IV FENT PUSHES TO HELP PT TOLERATE VENT SETTINGS. SATS RAPIDLY INCREASED TO HIGH 90%S AFTER INTERVENTIONS.
--- NOTE | 2020-10-29 08:15 | NUR ---
Dr. Coleman rounds on patient at this time. Son, Nas, arrives and family meeting is had with Nas, daughter Radhika via phone. Arlyn from Palliative Care present for meeting as well.
--- NOTE | 2020-10-29 09:00 | NUR ---
DNR status requested by family
--- NOTE | 2020-10-29 10:47 | NUR ---
Plant Worker collaborated with Arlyn Palliative RN about consult for patient. Arlyn advised the plan will be for patient to remain intubated for another 24 hours and family will be on their way to see patient. Arlyn advised patient's stated patient would not want to live like this. DORINA met with patient's , Senthil (ph#[phone]) and patient's son, Kevin (ph#[phone]) who are at bedside. Kevin advised that patient's daughter, Radhika (ph#[phone]) is flying in from [place] today. DORINA inquired about DPOA-HC. Kevin advised that patient recently updated her DPOA-HC and that it designates her , Senthil and two of her children, Radhika and Babatunde. Kevin advised that they will bring in a copy from home later today. Patient's legal next of kin until DPOA-HC is on file is her , Senthil. Patient has four children: Senthil, Babatunde, Kevin, and Radhika.
--- NOTE | 2020-10-29 11:10 | NUR ---
Called to family meeting in ICU this morning just after 0800 to talk with son, in person, and daughter, Radhika, by phone. Dr Coleman spoke with both of them about their mother's condition and the effect of her cardiogenic shock, intubation, acute renal failure, liver shock are all contributing to her worsening condition. They understand that her prognosis is poor and the family did agree to make her a DNR. They are requesting 24 more hours on the ventilator to allow her family to arrive to say goodbye and also to see if she will make any improvement. I did speak with Carolyn Harris about the request of family members to visit. arrived at bedside after the initial meeting and is supportive of the above stated plan. He reports she would not want to live like a vegetable and also reported that she had not been enjoying her life much recently due to her limitations. Support provided to family.
[2020-10-29 12:23] LABS: CALCIUM 7.8 mg/dL (8.4-10.2)
[2020-10-29 12:30] LABS: ARTERIAL BLD GAS O2 SATURATION 98.6 % (92-100); ARTERIAL BLD GAS TCO2 CT 13.4; ARTERIAL BLOOD GAS BASE EXCESS -12.1 (-2-2); ARTERIAL BLOOD GAS HCO3 12.6 meq/L (22-26); ARTERIAL BLOOD GAS PCO2 25.8 mmHg (35-45); ARTERIAL BLOOD GAS pH 7.31 (7.35-7.45)
[2020-10-29 12:31] LABS: CREATININE, serum 3.51 (0.52-1.25)
[2020-10-29 12:31] LABS: ARTERIAL BLOOD GAS PO2 154.9 mmHg (80-100)
--- NOTE | 2020-10-29 13:16 | NUR ---
Geriatric Care Manager received copy of patient's DPOA-HC which designates her , Senthil as primary agent and her two children, Ten and Radhika as alternates. SW placed copy in chart.
--- NOTE | 2020-10-29 14:00 | NUR ---
Patient continues to be stable on current medications and vent settings. Family at the bedside. Questions regarding her care are answered. Education provided on diagnoses. Will continue to monitor.
--- NOTE | 2020-10-29 19:44 | NUR ---
REPORT GIVEN TO REBECCA PERERA
[2020-10-29 20:16] LABS: CALCIUM 6.8 mg/dL (8.4-10.2); POTASSIUM 4.4 mmol/L (3.4-5.0)
[2020-10-29 20:22] LABS: CREATININE, serum 3.9 (0.52-1.25)
--- NOTE | 2020-10-29 20:45 | NUR ---
Assessment complete and charted. Daughter Radhika at bedside. Pam PADILLA speaking with daughter. Repositioned at this time.
[2020-10-30] VITALS (363 sets, daily range): BP systolic 94–107; BP diastolic 31–48; PULSE 66–82; TEMP 97.8–98.9; O2SAT 49–100
--- NOTE | 2020-10-30 00:30 | NUR ---
Assessment complete and charted at this time. Repositioned.
--- NOTE | 2020-10-30 02:19 | NUR ---
Patient given bath and clean linens at this time.
--- NOTE | 2020-10-30 05:00 | NUR ---
Sedation vacation not complete today due to patient stability. Pending palliative care consult today.
[2020-10-30 05:26] LABS: ARTERIAL BLD GAS O2 SATURATION 99.2 % (92-100); ARTERIAL BLD GAS TCO2 CT 18.9; ARTERIAL BLOOD GAS BASE EXCESS -4.2 (-2-2); ARTERIAL BLOOD GAS HCO3 18.1 meq/L (22-26); ARTERIAL BLOOD GAS PCO2 24.9 mmHg (35-45); ARTERIAL BLOOD GAS PO2 244.1 mmHg (80-100); ARTERIAL BLOOD GAS pH 7.48 (7.35-7.45)
[2020-10-30 05:47] LABS: CALCIUM 6.1 mg/dL (8.4-10.2); POTASSIUM 4.3 mmol/L (3.4-5.0)
[2020-10-30 05:52] LABS: CREATININE, serum 4.3 (0.52-1.25)
[2020-10-30 06:20] LABS: MEAN CORPUSCULAR HGB CONC 35 g/dl (33.0-37.0); MEAN PLATELET VOLUME 11.8 fl (7.4-10.4); PLATELET COUNT 59 K/mm3 (130-400); RED BLOOD COUNT 2.85 M/mm3 (4.10-5.30); REDCELL DISTRIBUTION WIDTH-CV 17.2 % (11.5-14.5)
--- NOTE | 2020-10-30 06:26 | NUR ---
Karime notified of sodium of 117. No new orders.
[2020-10-30 06:30] LABS: HEMOGLOBIN 9.5 g/dl (12.5-16.0); MEAN CELL VOLUME 95 fl (80.0-100.0); MEAN CORPUSCULAR HEMOGLOBIN 33 pg (27.0-31.0)
--- NOTE | 2020-10-30 07:00 | NUR ---
RECEIVED REPORT FROM REBECCA DESHPANDE. PT RESTING EASILY WITH CURRENT VENT SETTINGS: FIO2 50%, TV 400, PEEP 14, RR 24. OGT 68CM AT THE LIP TO LIS. FC PATENT AND DRAINING TO GRAVITY. VSS. SEE GTT FLOWSHEET.
[2020-10-30 07:14] LABS: BAND 32 % (0-10); LYMPHOCYTE 2 % (20.0-51.0); METAMYELOCYTE 1 % (0-0); NEUTROPHILS 64 % (42.0-75.2); NUCLEATED RED BLOOD CELL 2 (0-6)
[2020-10-30 07:15] LABS: PLATELET ESTIMATE DECREASED (NORMAL)
[2020-10-30 07:16] LABS: ANISOCYTOSIS 2+
--- NOTE | 2020-10-30 07:21 | NUR ---
PT DOES NOT QUALIFY FOR A WEAN TRIAL THE PEEP IS TOO HIGH. PT IS ON DOCUMENTED SETTINGS JOSE WELL WITH NO DISTRESS NOTED AT THIS TIME.
--- NOTE | 2020-10-30 08:25 | NUR ---
DR CURRAN AT BEDSIDE DISCUSSING WIHT FAMILY ABOUT PALLIATIVE EXTUBATION AND HIS PROGNOSIS OF PT'S CURRENT STATUS. CHANGES TO VENT SETTINGS: RR 22, TV 380, PEEP [address] CURRAN. FAMILY STATES WOULD LIKE SOME TIME TO DISCUSS.
[2020-10-30 08:46] LABS: BILIRUBIN UNCONJUGATED 1.1 mg/dL (0.0-1.1); BILIRUBIN,DIRECT 3.7 mg/dL (0.0-0.4); BILIRUBIN,TOTAL 4.8 mg/dL (0.0-1.0)
[2020-10-30 09:33] LABS: ALBUMIN 2.6 gm/dL (3.5-5.0)
--- NOTE | 2020-10-30 10:00 | NUR ---
FAMILY LETS RN KNOW THAT THEY WOULD LIKE TO EXTUBATE PT PALLITIVELY AFTER ALL GRANDKIDS AND CHILDREN HAVE COME TO SAY THEIR GOODBYES. RT NOTIFIEID. DR CURRAN AND DR ALVAREZ NOTIFIED OF DECISION.
--- NOTE | 2020-10-30 11:39 | NUR ---
Principal Programmer spoke with patient's daughter, Radhika. Plan will be to extubate patient and place on comfort care once all of her family has been able to visit, likely this afternoon. Radhika advised they want to use [facility] as their home. SW notified RN and Contact Center Assistant.
--- NOTE | 2020-10-30 12:06 | NUR ---
PT'S FAMILY STATES THAT ALL FAMILY MEMBERS HAVE COME AND GONE TO SAY THEIR GOODBYES. THE FOUR CHILDREN AND REMAIN AT BEDSIDE. MINI URBANO AT BEDSIDE DEACTIVATING ICD. FAMILY REQUESTS THAT THEY ARE READY FOR EXTUBATION. SEE JUL. RT NOTIFIED. AWAITING ARRIVAL OF RT.
--- NOTE | 2020-10-30 12:06 | NUR ---
PT EXTUBATED AT THIS TIME BY RT, OGT OUT AND RESTRAINTS OFF. FAMILY AT BEDSIDE. DR ALVAREZ AWARE OF EXTUBATION TIME
--- NOTE | 2020-10-30 12:28 | NUR ---
PT EXTUBATED FOR PALLATIVE.
--- NOTE | 2020-10-30 13:40 | NUR ---
PER MT, PT'S HR 28. BY THE TIME RN AND RADHA RN ENTER ROOM, PT DOES NOT APPEAR TO BE BREATHING. DOUBLE VERIFICATION AUSCULATED, NO HEART BEAT NOTED. MYNOR CALLED 1340. DR ALVAREZ NOTIFIED AT 1342.
--- NOTE | 2020-10-30 14:15 | NUR ---
ALL LINES OUT AT THIS TIME.
--- NOTE | 2020-10-30 14:18 | NUR ---
[facility] notified of , referral number [id number]. May release body at this time. Karl home notified. Radhika (daughter) took one gold ring, gold watch and clothes home with her. Cresco left on body to go to home.
== END 2020-10-30 14:46 | disposition expired ==
LOC: COL.ER 10:58 → EDBD 13:52 → ICU 13:52
PROVIDERS: Emergency Medicine; Internal Medicine Pulmonary Disease; Physician Assistant; Student in an Organized Health Care Education/Training Program; ADMIT Hospitalist
PROC: 02HV33Z Insertion of Infusion Device into Superior Vena Cava, Percutaneous Approach (ICD-10-PCS; 2020-10-28)
PROC: 0BH17EZ Insertion of Endotracheal Airway into Trachea, Via Natural or Artificial Opening (ICD-10-PCS; principal; 2020-10-29)
PROC: 5A1935Z Respiratory Ventilation, Less than 24 Consecutive Hours (ICD-10-PCS; 2020-10-29)
DX: I11.0 Hypertensive heart disease with heart failure (principal); K72.00 Acute and subacute hepatic failure without coma; I21.4 Non-ST elevation (NSTEMI) myocardial infarction; N17.9 Acute kidney failure, unspecified; E87.2 Acidosis; E87.1 Hypo-osmolality and hyponatremia; Z51.5 Encounter for palliative care; Z66 Do not resuscitate; R57.0 Cardiogenic shock; I50.23 Acute on chronic systolic (congestive) heart failure; I48.91 Unspecified atrial fibrillation; E78.5 Hyperlipidemia, unspecified; E03.9 Hypothyroidism, unspecified; F03.90 Unspecified dementia, unspecified severity, without behavioral disturbance, psychotic disturbance, mood disturbance, and anxiety; I25.5 Ischemic cardiomyopathy; M54.2 Cervicalgia; I44.7 Left bundle-branch block, unspecified; I27.20 Pulmonary hypertension, unspecified; I44.0 Atrioventricular block, first degree; G62.9 Polyneuropathy, unspecified; F32.9 Major depressive disorder, single episode, unspecified; R94.5 Abnormal results of liver function studies; E87.5 Hyperkalemia; Z20.822 Contact with and (suspected) exposure to COVID-19; Z95.810 Presence of automatic (implantable) cardiac defibrillator; Z79.890 Hormone replacement therapy; Z87.891 Personal history of nicotine dependence
CPT/HCPCS: 99223-AI; 99232-AI; 99233-AI; 99239; A4314; J0282; J0330; J0610; J1250; J1644; J1815; J1940; J2060; J2270; J2543; J2704; J3010; J3370; J3475; J7030; J7050; J7060